=== PATIENT | female | born 1990 | race Caucasian/White ===

== ENCOUNTER 2017-09-16 09:53 | Emergency (ER) | payer MEDICAID ==
[~2017-09-16] VITALS: Ht 162.6 cm; Wt 118.0 kg
[2017-09-16 10:11] VITALS: BP 154/108
[2017-09-16] MEDS ORDERED: BENZ-38 PO (11:03)
[2017-09-16] MEDS ORDERED: AZIT-63 PO (11:03)
== END 2017-09-16 11:17 | disposition home or self-care (01) ==
LOC: ER 09:54
DX: J20.9 Acute bronchitis, unspecified (principal); Z79.899 Other long term (current) drug therapy
CPT/HCPCS: 99283

== ENCOUNTER 2017-10-10 07:52 | Inpatient (IN) | payer MEDICAID ==
[2017-10-10] VITALS (7 sets, daily range): BP systolic 117–153; BP diastolic 54–71
[~2017-10-10] VITALS: Ht 170.2 cm; Wt 111.0 kg
[~2017-10-10 07:52] MED LIST: BENZ-38 PO
[2017-10-10 08:28] LABS: BASOPHILS # (AUTO) 0.1 X10'3 (0-0.2); BASOPHILS % (AUTO) 0.8 % (0-1); EOSINOPHILS # (AUTO) 0.2 X10'3 (0-0.9); EOSINOPHILS % (AUTO) 3.3 % (0-6); HEMATOCRIT 38.5 % (35.0-45.0); LYMPHOCYTES # (AUTO) 1.7 X10'3 (1.1-4.8); LYMPHOCYTES % (AUTO) 24.6 % (21-51); MEAN CORPUSCULAR HEMOGLOBIN 28.8 PG (27.0-31.0); MEAN CORPUSCULAR HGB CONC 33.7 % (33.0-36.5); MEAN CORPUSCULAR VOLUME 85.3 FL (78-98); MEAN PLATELET VOLUME 8.4 FL (7.4-10.4); MONOCYTES # (AUTO) 0.4 X10'3 (0-0.9); MONOCYTES % (AUTO) 5.9 % (2-12); NEUTROPHILS # (AUTO) 4.6 X10'3 (1.8-7.7); NEUTROPHILS % (AUTO) 65.4 % (42-75); PLATELET COUNT 246 X10'3 (140-440); RED BLOOD COUNT 4.52 X10'6 (4.20-5.60); RED CELL DISTRIBUTION WIDTH 14.5 % (11.5-14.5); WHITE BLOOD COUNT 7.1 X10'3 (4.5-11.0)
[2017-10-10 08:46] LABS: ALANINE AMINOTRANSFERASE 25 U/L (12-78); ALBUMIN 3.6 G/DL (3.4-5.0); ALBUMIN/GLOBULIN RATIO 0.9 (1.1-1.5); ALKALINE PHOSPHATASE 67 IU/L (46-116); ANION GAP 8 (8-16); ASPARTATE AMINO TRANSFERASE 13 U/L (10-37); BILIRUBIN,TOTAL 0.4 MG/DL (0.1-1.0); BLOOD UREA NITROGEN 13 MG/DL (7-18); BUN/CREATININE RATIO 16.3 (6.6-38.0); CALCIUM 9.1 MG/DL (8.5-10.1); CHLORIDE 109 MMOL/L (99-107); GLUCOSE 108 MG/DL (70-104); LIPASE 139 U/L (73-393); POTASSIUM 4.6 MMOL/L (3.5-5.1); SODIUM 144 MMOL/L (135-145); TOTAL CARBON DIOXIDE 26.9 MMOL/L (24-32); TOTAL PROTEIN 7.5 G/DL (6.4-8.2); eGFR 86 ML/MIN
[2017-10-10 08:49] LABS: CLARITY,URINE CLOUDY (Clear); COLOR,URINE YELLOW (Yellow); GLUCOSE, URINE NEGATIVE (Neg); KETONES,URINE NEGATIVE (Neg); LEUKOCYTE ESTERASE ,URINE LARGE (Neg); NITRITES, URINE NEGATIVE (Neg); OCCULT BLOOD,URINE NEGATIVE (Neg); PROTEIN,URINE NEGATIVE (Neg); UROBILINOGEN,URINE 0.2 E.U/dL (0.2-1.0)
[2017-10-10 08:50] LABS: UA COLLECTION TYPE CLN CATCH MIDSTREAM
[2017-10-10 08:51] LABS: URINE HCG NEGATIVE (NEG)
[2017-10-10 08:58] LABS: BACTERIA,URINE 2+ /HPF (Neg); RBC,URINE 0-2 /HPF (0-2); SQUAMOUS EPITHELIAL CELL,UR MANY /LPF (FEW); WBC,URINE 20-30 /HPF (0-4)
[2017-10-10 09:00] LABS: YEAST FEW /HPF (NEGATIVE)
[2017-10-10] MEDS ORDERED: diatrozoate meglu/diatrozoate sod (37% iodine) 120ML oral solution PO ONE (09:40)
[2017-10-10] MEDS ORDERED: diatr meglu/diatrizoate 30ml oral sol.-(3 dose) bottle PO ONE (09:45)
[2017-10-10] MEDS ORDERED: ETON68IM3 SQ (11:41)
[2017-10-10] MEDS ORDERED: potassium Cl 20 mEq SR tablet PO PRN ×2 (12:05)
[2017-10-10] MEDS ORDERED: magnesium Cl slow-release 64mg tablet PO PRN (12:05)
[2017-10-10] MEDS ORDERED: magnesium 2GM in 50ml NS 50 ML IV PRN (12:05)
[2017-10-10] MEDS ORDERED: HYDROmorphone inj. 0.5 MG/0.5 ML DISP.SYRIN IV PRN (12:05)
[2017-10-10] MEDS ORDERED: magnesium 4gm in 100ml NS 100 ML IV PRN (12:05)
[2017-10-10] MEDS ORDERED: potassium Cl 40MEQ/NS 500ml 500 ML IV PRN ×2 (12:05)
[2017-10-10] MEDS ORDERED: morphine 4 MG/ML inj SYRINge IV PRN (12:30)
[2017-10-10] MEDS ORDERED: morphine 4 MG/ML inj SYRINge IM ONE (13:00)
[2017-10-10] MEDS: pantoprazole 40 MG vial IV SCH ×2 (14:28→22:25)
[2017-10-10] MEDS: CefTRIAXone/D5W-Rocephin 1gm 50 ML IV SCH (14:28)
[2017-10-10] MEDS: normal saline 1000ml 1,000 ML IV SCH ×2 (14:28→22:02)
[2017-10-10] MEDS ORDERED: normal saline 1000ml 1,000 ML IV SCH (16:24)
[2017-10-10] MEDS ORDERED: fentaNYL/PF 50MCG/1 ML 2ML syringe IV PRN (16:25)
[2017-10-10] MEDS ORDERED: simethicone 40mg/0.6ml oral drops 30ml MC ONE (16:25)
[2017-10-10] MEDS ORDERED: MIDAZolam 5mg/5ml vial IV PRN (16:25)
[2017-10-10] MEDS ORDERED: LIDOcaine Viscous 15ml cup PO ONE (16:25)
[2017-10-10] MEDS: MORPHINE 2MG in 2ml NS syringe IV PRN ×2 (17:26→22:26)
[2017-10-10] MEDS: ondansetron/PF 4mg/2ml inj IV PRN (18:28)
[2017-10-10] MEDS ORDERED: fentaNYL/PF 50MCG/1 ML 2ML syringe ONE (19:32)
[2017-10-10] MEDS ORDERED: LIDOcaine Viscous 15ml cup ONE (19:32)
[2017-10-10] MEDS ORDERED: MIDAZolam 5mg/5ml vial ONE ×2 (19:32→21:26)
[2017-10-11] VITALS: BP 119/67
[2017-10-11 03:53] LABS: BASOPHILS # (AUTO) 0.1 X10'3 (0-0.2); BASOPHILS % (AUTO) 1.1 % (0-1); EOSINOPHILS # (AUTO) 0.2 X10'3 (0-0.9); EOSINOPHILS % (AUTO) 2.9 % (0-6); HEMATOCRIT 33.5 % (35.0-45.0); HEMOGLOBIN 11.3 g/dl (12.0-16.0); LYMPHOCYTES # (AUTO) 1.9 X10'3 (1.1-4.8); MEAN CORPUSCULAR HEMOGLOBIN 28.6 PG (27.0-31.0); MEAN CORPUSCULAR HGB CONC 33.6 % (33.0-36.5); MEAN PLATELET VOLUME 8.6 FL (7.4-10.4); MONOCYTES # (AUTO) 0.4 X10'3 (0-0.9); MONOCYTES % (AUTO) 5.4 % (2-12); NEUTROPHILS # (AUTO) 4.3 X10'3 (1.8-7.7); NEUTROPHILS % (AUTO) 62.6 % (42-75); PLATELET COUNT 178 X10'3 (140-440); RED BLOOD COUNT 3.94 X10'6 (4.20-5.60); RED CELL DISTRIBUTION WIDTH 14.9 % (11.5-14.5); WHITE BLOOD COUNT 6.9 X10'3 (4.5-11.0)
[2017-10-11] MEDS: MORPHINE 2MG in 2ml NS syringe IV PRN (04:52)
[2017-10-11 06:27] LABS: ALANINE AMINOTRANSFERASE 18 U/L (12-78); ALBUMIN 2.9 G/DL (3.4-5.0); ALBUMIN/GLOBULIN RATIO 0.9 (1.1-1.5); ALKALINE PHOSPHATASE 57 IU/L (46-116); ANION GAP 9 (8-16); ASPARTATE AMINO TRANSFERASE 10 U/L (10-37); BILIRUBIN,TOTAL 0.4 MG/DL (0.1-1.0); BLOOD UREA NITROGEN 11 MG/DL (7-18); BUN/CREATININE RATIO 12.5 (6.6-38.0); CALCIUM 8.4 MG/DL (8.5-10.1); CHLORIDE 110 MMOL/L (99-107); CREATININE 0.88 MG/DL (0.40-0.90); GLUCOSE 89 MG/DL (70-104); MAGNESIUM 1.8 MG/DL (1.5-2.4); POTASSIUM 3.9 MMOL/L (3.5-5.1); SODIUM 143 MMOL/L (135-145); TOTAL CARBON DIOXIDE 24.3 MMOL/L (24-32); TOTAL PROTEIN 6.2 G/DL (6.4-8.2); eGFR 77 ML/MIN
[2017-10-11 07:00] VITALS: BP 103/70
[2017-10-11] MEDS: pantoprazole 40 MG vial IV SCH (07:29)
[2017-10-11] MEDS: CefTRIAXone/D5W-Rocephin 1gm 50 ML IV SCH (07:30)
[2017-10-11] MEDS: normal saline 1000ml 1,000 ML IV SCH (07:40)
[2017-10-11] MEDS ORDERED: K and/or MAG REPLACEMENT MC SCH (08:00)
[2017-10-11] MEDS ORDERED: MICO1KIT8 VG (11:08)
[2017-10-11] MEDS ORDERED: OMEP40CA37 PO (11:08)
[2017-10-11] MEDS ORDERED: CIPR-230 PO (11:08)
[2017-10-11 11:32] VITALS: BP 131/74
[2017-10-11] MEDS: ondansetron/PF 4mg/2ml inj IV PRN (12:51)
[2017-10-11] MEDS ORDERED: lactobacillus rhamnosus 10,000 MMU CELLS/CAPSULE PO SCH (20:00)
== END 2017-10-11 15:00 | disposition home or self-care (01) | DRG 243 ==
LOC: ER 07:53 → ED HOLD 12:02 → SUR 3N 15:25
PROVIDERS: ADMIT Internal Medicine; ATTEND Internal Medicine
PROC: 0DJ08ZZ Inspection of Upper Intestinal Tract, Via Natural or Artificial Opening Endoscopic (ICD-10-PCS; principal; 2017-10-10)
DX: K20.9 Esophagitis, unspecified (principal); N39.0 Urinary tract infection, site not specified; R10.13 Epigastric pain; K62.5 Hemorrhage of anus and rectum; R07.89 Other chest pain; Z98.84 Bariatric surgery status
CPT/HCPCS: 36415; 71045; 71250; 80053; 81001; 81025; 83690; 83735; 85025; 87070; A4620; C9113; G0500; J0696; J2250; J2270; J2274; J2405; J3010; J7030; Q9963

== ENCOUNTER 2017-10-16 17:35 | Emergency (ER) | payer MEDICAID ==
[~2017-10-16] VITALS: Ht 170.2 cm; Wt 116.3 kg
[~2017-10-16 17:35] MED LIST changes: -BENZ-38 PO; +CIPR-230 PO; +ETON68IM3 SQ; +MICO1KIT8 VG; +OMEP40CA37 PO
[2017-10-16 18:15] LABS: BASOPHILS % (AUTO) 0.4 % (0-1); EOSINOPHILS # (AUTO) 0.1 X10'3 (0-0.9); EOSINOPHILS % (AUTO) 1.2 % (0-6); HEMATOCRIT 40.6 % (35.0-45.0); HEMOGLOBIN 13.8 g/dl (12.0-16.0); LYMPHOCYTES # (AUTO) 1.2 X10'3 (1.1-4.8); LYMPHOCYTES % (AUTO) 18.7 % (21-51); MEAN CORPUSCULAR HEMOGLOBIN 28.8 PG (27.0-31.0); MEAN CORPUSCULAR VOLUME 84.6 FL (78-98); MEAN PLATELET VOLUME 8.7 FL (7.4-10.4); MONOCYTES # (AUTO) 0.5 X10'3 (0-0.9); MONOCYTES % (AUTO) 7.9 % (2-12); NEUTROPHILS # (AUTO) 4.6 X10'3 (1.8-7.7); NEUTROPHILS % (AUTO) 71.8 % (42-75); PLATELET COUNT 250 X10'3 (140-440); RED CELL DISTRIBUTION WIDTH 14.7 % (11.5-14.5); WHITE BLOOD COUNT 6.5 X10'3 (4.5-11.0)
[2017-10-16 18:28] LABS: INR 1.1 INR; PROTHROMBIN TIME 10.9 SECONDS (9.0-12.0)
[2017-10-16 18:34] LABS: ALANINE AMINOTRANSFERASE 21 U/L (12-78); ALKALINE PHOSPHATASE 74 IU/L (46-116); ANION GAP 14 (8-16); ASPARTATE AMINO TRANSFERASE 13 U/L (10-37); BILIRUBIN,TOTAL 0.6 MG/DL (0.1-1.0); BLOOD UREA NITROGEN 14 MG/DL (7-18); BUN/CREATININE RATIO 15.6 (6.6-38.0); CALCIUM 9.5 MG/DL (8.5-10.1); CHLORIDE 103 MMOL/L (99-107); GLUCOSE 93 MG/DL (70-104); POTASSIUM 3.9 MMOL/L (3.5-5.1); SODIUM 141 MMOL/L (135-145); TOTAL CARBON DIOXIDE 23.6 MMOL/L (24-32); TOTAL PROTEIN 8.1 G/DL (6.4-8.2); eGFR 75 ML/MIN
[2017-10-16 18:59] LABS: CLARITY,URINE CLEAR (Clear); COLOR,URINE YELLOW (Yellow); GLUCOSE, URINE NEGATIVE (Neg); KETONES,URINE 15 mg/dl (Neg); LEUKOCYTE ESTERASE ,URINE NEGATIVE (Neg); NITRITES, URINE NEGATIVE (Neg); OCCULT BLOOD,URINE NEGATIVE (Neg); PROTEIN,URINE 30 mg/dl (Neg); UROBILINOGEN,URINE 0.2 E.U/dL (0.2-1.0)
[2017-10-16 19:02] LABS: UA COLLECTION TYPE CLN CATCH MIDSTREAM
[2017-10-16 19:08] LABS: BACTERIA,URINE FEW /HPF (Neg); MUCUS STRANDS FEW /LPF (Neg); RBC,URINE 0-2 /HPF (0-2); SQUAMOUS EPITHELIAL CELL,UR MODERATE /LPF (FEW); WBC,URINE 0-4 /HPF (0-4)
[2017-10-16] MEDS ORDERED: normal saline 1000ml 1,000 ML IV ONE (19:40)
[2017-10-16] MEDS ORDERED: pantoprazole 40 MG vial IV ONE (19:40)
[2017-10-16] MEDS ORDERED: ondansetron/PF 4mg/2ml inj IV ONE (19:40)
[2017-10-16] MEDS ORDERED: ONDA8TAB9 PO (20:33)
[2017-10-16 20:44] VITALS: BP 138/75
== END 2017-10-16 20:45 | disposition home or self-care (01) ==
LOC: ER 17:36
DX: R11.2 Nausea with vomiting, unspecified (principal); R19.7 Diarrhea, unspecified; Z98.84 Bariatric surgery status; Z79.899 Other long term (current) drug therapy
CPT/HCPCS: 36415; 80053; 81001; 85025; 85610; 96361; 96374; 96375; 99284; C9113; J2405; J7030; 99283

== ENCOUNTER 2017-11-14 08:00 | Emergency (ER) | payer MEDICAID ==
[~2017-11-14] VITALS: Ht 170.2 cm; Wt 117.5 kg
[~2017-11-14 08:00] MED LIST changes: -CIPR-230 PO; -OMEP40CA37 PO; +ONDA8TAB9 PO
[2017-11-14 08:12] VITALS: BP 134/79
[2017-11-14] MEDS ORDERED: sulfamethoxazole/trimethoprim DS (800/160mg) tablet PO ONE (08:30)
[2017-11-14] MEDS ORDERED: HYDROcodone/acetaminophen 10/325mg tab PO ONE (08:30)
[2017-11-14] MEDS ORDERED: LIDOcaine 1.5% w/epinephrine 1:200,000 5ml ampul IJ ONE (08:30)
[2017-11-14] MEDS ORDERED: heparin 10,000 units/1 ML INJ IV ONE ×2 (09:05→09:10)
[2017-11-14] MEDS ORDERED: heparin 10,000 units/1 ML INJ IV PRN ×2 (09:05→09:10)
[2017-11-14] MEDS ORDERED: atropine 1 MG/1 ML vial IV ONE ×2 (09:05→09:10)
[2017-11-14] MEDS ORDERED: HYDR-565 PO (09:14)
[2017-11-14] MEDS ORDERED: SULF1TAB49 PO (09:14)
== END 2017-11-14 09:24 | disposition home or self-care (01) ==
LOC: ER 08:00
DX: N76.4 Abscess of vulva (principal); Z79.899 Other long term (current) drug therapy
CPT/HCPCS: 56405; 99284; A6449; J3490; A6266; J0461

== ENCOUNTER 2017-11-23 09:04 | Emergency (ER) | payer MEDICAID ==
[~2017-11-23] VITALS: Ht 170.2 cm; Wt 117.5 kg
[~2017-11-23 09:04] MED LIST changes: +HYDR-565 PO; +SULF1TAB49 PO
[2017-11-23 11:08] VITALS: BP 141/76
== END 2017-11-23 11:20 | disposition home or self-care (01) ==
LOC: ER 09:05
DX: L27.0 Generalized skin eruption due to drugs and medicaments taken internally (principal); T37.0X5A Adverse effect of sulfonamides, initial encounter; Y92.9 Unspecified place or not applicable; Z88.2 Allergy status to sulfonamides; Z79.899 Other long term (current) drug therapy
CPT/HCPCS: 99281